=== PATIENT | male | born 2000 | race African-American/Black ===

== ENCOUNTER 2023-06-27 10:51 | Emergency (ER) | payer OTHER, SELFPAY ==
[2023-06-27 10:55] VITALS: BP 156/97; PULSE 97; RESP 17; TEMP 36.6; O2SAT 100; BMI 25.8
--- NOTE | 2023-06-27 11:01 | ED.GENADULT ---
HPI - General Adult General Chief complaint: Upper Respiratory Symptoms Stated complaint: Was around a sick person - no current symptoms Time Seen by Provider: 06/27/23 11:01 Source: patient, RN notes reviewed and old records reviewed Mode of arrival: ambulatory Limitations: no limitations History of Present Illness HPI narrative: This is a healthy 23-year-old male presents for evaluation of cough Patient reports that he has had a dry cough for the last couple of days He denies any fevers, chills, weakness, shortness of breath, chest pain He reports that his mother was diagnosed with pneumonia and ?I just want to get checked out. ? Related Data Allergies Allergy/AdvReac Type Severity Reaction Status Date / Time No Known Allergies Allergy Verified 06/27/23 10:55 Review of Systems Constitutional: Constitutional: Denies body ache(s), Denies chills, Denies fever(s) and Denies headache(s) ENT: Denies headache(s) and Denies sore throat Cardiovascular: Cardiovascular: Denies chest pain and Denies dyspnea Respiratory: Respiratory: Reports cough and Denies dyspnea Neurologic: Denies headache(s) PMFSH Social History Social History Advance Directives: No Physical Exam ED Vital Signs: Vital Signs - 24 hr 06/27/23 10:55 Temperature 98 F Pulse Rate 97 Respiratory Rate 17 Blood Pressure 156/97 H Pulse Oximetry 100 Oxygen Delivery Method Room Air BMI result Body Mass Index 25.8 Const General: healthy appearing, comfortable, no acute distress, alert and awake Nutritional Appearance: well nourished Orientation/consciousness: patient oriented x3 HENMT Head: Yes normocephalic and Yes atraumatic Eyes Eyelids: Yes eyelids normal Conjunctivae: conjunctivae normal Sclerae: sclerae normal Corneas: corneas normal Pupils: Equal, round and reactive pupils present EOM: EOMs intact bilaterally Neck Neck: Yes full ROM Resp Effort & Inspection: normal respiratory effort, able to speak in complete sentences, no audible wheezes and not labored Auscultation: clear to auscultation bilaterally Skin General skin exam: elasticity normal Neuro General: patient oriented x3 Cranial nerves: Yes Equal, round and reactive pupils present and Yes Bilaterally intact EOM present Cognition (Neuro): normal cognition Extrem Other: Moving all extremities well without any obvious deformities Medical Decision Making Medical Decision Making MDM Narrative: This is a healthy 23-year-old male presenting for evaluation of cough. His vital signs are within normal limits, his physical exam was reassuring and lungs are clear to auscultation. Discussed possible chest x-ray with the patient but I feel this is not necessarily this time. The patient is comfortable with discharge. He was given return precautions Differential Diagnosis Differential Diagnoses: The differential diagnosis associated with the presentation includes Acute cough Postnasal drip Viral syndrome Pneumonia less likely Tests considered The following testing was considered but not selected: Consider chest x-ray but was ultimately deferred Discharge Plan Discharge Clinical Impression: Acute cough Patient Disposition: Home, Self-Care Instructions: Acute Cough (ED) Additional Instructions: Your lungs are clear to auscultation Your vital signs are within normal limits Return to the ER if any worsening symptoms in the next few days or if your cough persists beyond another week Otherwise, you may follow-up with your primary doctor Interventions: ED Discharge Assessment Last Done: 06/27/23 11:11 Discharge Date/Time: 06/27/23 11:11
== END 2023-06-27 11:11 | disposition home or self-care (01) ==
PROVIDERS: Emergency Provider Emergency Medicine
DX: R05.9 Cough, unspecified (principal)
CPT/HCPCS: 99282